=== PATIENT | male | born 1970 | race Caucasian/White ===

== ENCOUNTER 2016-09-19 16:45 | Observation (INO) ==
[2016-09-19 17:22] LABS: Basophils # 0.1 K/mcL (0.0-0.2); Basophils % 0.8 %; Eosinophils # 0.1 K/mcL (0.0-0.6); Eosinophils % 1.7 %; Hematocrit 40.5 % (37.5-50.1); Hemoglobin 13.9 g/dL (12.9-16.9); Immature Granulocytes % 0.5 % (0-4); Lymphocytes # 2.5 K/mcL (0.6-4.6); Lymphocytes % 37.7 %; Mean Corpuscular HGB Conc 34.3 g/dL (31.6-35.5); Mean Corpuscular Hemoglobin 28.5 pg (28.0-33.3); Mean Corpuscular Volume 83.2 fL (83.0-100.0); Mean Platelet Volume 9.9 fL (9.4-12.4); Monocytes # 0.4 K/mcL (0.0-1.3); Monocytes % 5.8 %; Neutrophils # 3.5 K/mcL (1.6-8.9); Platelet Count 225 K/mcL (140-400); Red Blood Count 4.87 M/mcL (4.19-5.50); Red Cell Distribution Width 13.1 % (11.5-14.5); Segmented Neutrophils % 53.5 %
[2016-09-19 17:28] LABS: Prothrombin Time 10.9 Seconds (9.4-12.1)
--- NOTE | 2016-09-19 17:32 | Emergency Department Note ---
Disposition Clinical Impression: Chest pain Qualifiers: Chest pain type: chest pain on breathing Qualified Code(s): R07.1 - Chest pain on breathing Disposition: Admitted As Inpatient Chest Pain HPI - General Chief Complaint: ED Chest Pain Stated Complaint: chest pain Time Seen by Provider: 09/19/16 16:48 Source: patient Limitations: no limitations Vital Signs Reviewed: Yes Nursing Notes Reviewed: Yes - History of Present Illness HPI Narrative: Patient presents with complaint of chest pain that started earlier today. Patient describes the pain as a pressure he feels a going to his left shoulder. Patient states is more pronounced with taking deep breaths, patient denies prior history of similar symptoms. Patient denies any falls denies numbness and tingling. Patient denies fevers or chills. His grandmother had a heart attack in her 40s. Severity scale (1-10): 7 - Related Data Home Medications Medication Instructions Recorded Confirmed Divalproex (12 HR) [Depakote (12 500 mg PO BID 09/19/16 09/19/16 HR)] SUMAtriptan Succinate [Imitrex] 100 mg PO DAILY PRN MDD 200 mg 09/19/16 09/19/16 Allergies Allergy/AdvReac Type Severity Reaction Status Date / Time morphine Allergy Hives Verified 09/19/16 19:58 All systems ED: reviewed and negative except as stated. Chest Pain PMH - Past Medical History Medical history: Reports: CVA, hypertension Psychiatric history: Reports: no psych history - Social History Smoking Status: Never smoker Alcohol use: Reports: none Drug use: Reports: none Physical Exam - General Limitations: no limitations General appearance: alert, in no apparent distress - Head Head exam: atraumatic, normocephalic, normal inspection - Eye Eye exam: Present: normal appearance, PERRL, EOMI - ENT ENT exam: normal exam, normal oropharynx, mucous membranes moist - Neck Neck exam: Present: normal inspection, full ROM, trachea midline - Chest Chest inspection: Present: normal inspection, symmetric chest wall rise - Respiratory Respiratory exam: Present: normal lung sounds bilaterally - Cardiovascular Cardiovascular exam: Present: regular rate, normal rhythm, normal heart sounds - Abdominal Exam Abdominal exam: Present: soft, Non-Tender. Absent: tenderness, distention, guarding, rebound, rigidity - Extremities Exam Extremities exam: Present: normal inspection, full ROM. Absent: tenderness, pedal edema - Back Exam Back exam: Present: normal inspection, full ROM. Absent: tenderness - Neurological Exam Neurological exam: Present: alert, oriented X3 - Psychiatric Psychiatric exam: Present: normal affect, normal mood - Skin Skin exam: Present: warm, dry, intact, normal color Course Vital Signs Temperature 98 F 09/19/16 16:52 Pulse Rate 91 09/19/16 16:52 Respiratory Rate 16 09/19/16 16:52 Blood Pressure 161/108 09/19/16 16:52 O2 Sat by Pulse Oximetry 100 09/19/16 16:52 Temperature 98 F 09/19/16 16:52 Pulse Rate 70 09/19/16 21:07 Respiratory Rate 16 09/19/16 21:07 Blood Pressure 129/90 09/19/16 21:07 O2 Sat by Pulse Oximetry 98 09/19/16 21:07 Oxygen Delivery Oxygen Delivery Room Air Chest Pain - Differential Diagnosis Likely: fracture of rib, pneumothorax, unstable angina pectoris, atypical chest pain, st elevation myocardial infraction - Lab Data Lab results reviewed: Yes I reviewed the patient's lab results. Result diagrams: 09/19/16 17:05 09/19/16 17:05 Lab Results 09/19/16 09/19/16 09/19/16 Range/Units 17:05 17:05 17:05 WBC 6.6 (4.3-11.1) K/mcL RBC 4.87 (4.19-5.50) M/mcL Hgb 13.9 (12.9-16.9) g/dL Hct 40.5 (37.5-50.1) % MCV 83.2 (83.0-100.0) fL MCH 28.5 (28.0-33.3) pg MCHC 34.3 (31.6-35.5) g/dL RDW 13.1 (11.5-14.5) % Plt Count 225 (140-400) K/mcL MPV 9.9 (9.4-12.4) fL Immature Gran % 0.5 (0-4) % Seg Neutrophils % 53.5 % Lymphocytes % 37.7 % Monocytes % 5.8 % Eosinophils % 1.7 % Basophils % 0.8 % Neutrophils # 3.5 (1.6-8.9) K/mcL Lymphocytes # 2.5 (0.6-4.6) K/mcL Monocytes # 0.4 (0.0-1.3) K/mcL Eosinophils # 0.1 (0.0-0.6) K/mcL Basophils # 0.1 (0.0-0.2) K/mcL PT 10.9 (9.4-12.1) Seconds INR 1.0 APTT 30.0 (26.0-36.0) Seconds D-Dimer 716 H (0-500) ng/mLFEU Sodium 141 (136-145) mEq/L Potassium 3.8 (3.5-4.5) mEq/L Chloride 105 (98-109) mEq/L Carbon Dioxide 25 (19-29) mEq/L BUN 14 (8-26) mg/dL Creatinine 0.97 (0.72-1.25) mg/dL Est GFR ( Amer) > 60 (> 60) Est GFR (Non-Af Amer) > 60 (> 60) BUN/Creatinine Ratio 14 (6-26) Glucose 118 H (70-99) mg/dL Calculated Osmolality 294 (280-300) Calcium 9.1 (8.6-10.8) mg/dL Magnesium 1.7 (1.6-2.6) mg/dL Total Bilirubin 0.6 (0.2-1.2) mg/dL AST 19 (5-34) Units/L ALT 31 (0-55) Units/L Alkaline Phosphatase 29 L (38-126) Units/L Troponin I (0-0.03) ng/mL B-Natriuretic Peptide (0-100) pg/mL Serum Total Protein 7.5 (6.0-8.3) g/dL Albumin 3.8 (3.5-5.0) g/dL Globulin 3.7 H (2.4-3.5) g/dL Albumin/Globulin Ratio 1.0 L (1.1-2.2) Triglycerides 160 H (< 150) mg/dL Cholesterol 172 (< 200) mg/dL LDL Cholesterol, Calc 94 (0-99) mg/dL VLDL Cholesterol, Calc 32 H (< 31) mg/dL HDL Cholesterol 46 (40-59) mg/dL Cholesterol/HDL Ratio 3.7 (0-4.9) 09/19/16 09/19/16 Range/Units 17:05 17:05 WBC (4.3-11.1) K/mcL RBC (4.19-5.50) M/mcL Hgb (12.9-16.9) g/dL Hct (37.5-50.1) % MCV (83.0-100.0) fL MCH (28.0-33.3) pg MCHC (31.6-35.5) g/dL RDW (11.5-14.5) % Plt Count (140-400) K/mcL MPV (9.4-12.4) fL Immature Gran % (0-4) % Seg Neutrophils % % Lymphocytes % % Monocytes % % Eosinophils % % Basophils % % Neutrophils # (1.6-8.9) K/mcL Lymphocytes # (0.6-4.6) K/mcL Monocytes # (0.0-1.3) K/mcL Eosinophils # (0.0-0.6) K/mcL Basophils # (0.0-0.2) K/mcL PT (9.4-12.1) Seconds INR APTT (26.0-36.0) Seconds D-Dimer (0-500) ng/mLFEU Sodium (136-145) mEq/L Potassium (3.5-4.5) mEq/L Chloride (98-109) mEq/L Carbon Dioxide (19-29) mEq/L BUN (8-26) mg/dL Creatinine (0.72-1.25) mg/dL Est GFR ( Amer) (> 60) Est GFR (Non-Af Amer) (> 60) BUN/Creatinine Ratio (6-26) Glucose (70-99) mg/dL Calculated Osmolality (280-300) Calcium (8.6-10.8) mg/dL Magnesium (1.6-2.6) mg/dL Total Bilirubin (0.2-1.2) mg/dL AST (5-34) Units/L ALT (0-55) Units/L Alkaline Phosphatase (38-126) Units/L Troponin I 0.00 (0-0.03) ng/mL B-Natriuretic Peptide < 10 (0-100) pg/mL Serum Total Protein (6.0-8.3) g/dL Albumin (3.5-5.0) g/dL Globulin (2.4-3.5) g/dL Albumin/Globulin Ratio (1.1-2.2) Triglycerides (< 150) mg/dL Cholesterol (< 200) mg/dL LDL Cholesterol, Calc (0-99) mg/dL VLDL Cholesterol, Calc (< 31) mg/dL HDL Cholesterol (40-59) mg/dL Cholesterol/HDL Ratio (0-4.9) - Radiology Data Radiology results reviewed: Yes I reviewed the patient's radiology results. Chest X-Ray 09/19/16 16:57 IMPRESSION: No acute process. D/ / Nadeem Benavidez MD / Nadeem Benavidez MD Interpreting Provider: Nadeem Benavidez MD Chest CTA 09/19/16 17:58 IMPRESSION: No evidence of pulmonary embolism or acute pulmonary abnormality. D/ / Tejas Valdes MD / Tejas Valdes MD Interpreting Provider: Tejas Valdes MD - EKG Data EKG attestation: Yes I reviewed and interpreted this EKG. EKG results narrative: EKG was performed and interpreted myself as normal sinus rhythm normal axis. Does note there is T-wave inversion in lead 3 and T-wave flattening in aVR. No previous EKG was available for comparison
[2016-09-19 17:35] LABS: Alanine Aminotransferase 31 Units/L (0-55); Albumin 3.8 g/dL (3.5-5.0); Alkaline Phosphatase 29 Units/L (38-126); Aspartate Amino Transferase 19 Units/L (5-34); BUN/Creatinine Ratio 14 (6-26); Bilirubin,Total 0.6 mg/dL (0.2-1.2); Blood Urea Nitrogen 14 mg/dL (8-26); Calcium 9.1 mg/dL (8.6-10.8); Carbon Dioxide 25 mEq/L (19-29); Chloride 105 mEq/L (98-109); Globulin 3.7 g/dL (2.4-3.5); Glucose 118 mg/dL (70-99); Osmolality,Calculated 294 (280-300); Potassium 3.8 mEq/L (3.5-4.5); Sodium 141 mEq/L (136-145); Total Protein 7.5 g/dL (6.0-8.3); eGFR For African Americans > 60 (> 60); eGFR For Non-African Americans > 60 (> 60)
[2016-09-19] MEDS: Nitroglycerin 0.4 MG TAB.SUBL SL PRN ×3 (18:47→18:58)
[2016-09-19] MEDS ORDERED: Aspirin 81 MG TAB.CHEW PO STA (19:36)
[2016-09-19] MEDS ORDERED: *HR* Morphine 2 MG/ML SYRINGE IVP ONE (19:36)
[2016-09-19] MEDS ORDERED: *HR* Morphine 2 MG/ML SYRINGE IVP PRN (21:21)
--- NOTE | 2016-09-19 21:39 | Internal Med History&Physical ---
Date of Encounter: 09/19/16 Time of Encounter: 21:27 Assessment and Plan (1) Chest pain radiating to arm Current visit: Yes Status: Acute acute onset low ESDRAS score, strong Family history of cardiac disease Na, K, Ca, wnl will check Mg BP 134/90, will continue to monitor EKG with T wave inversion lead 3, falt T in aVR without prior EKG for comparison troponin 0.0, will continue to trend has never had previous cardiac workup will check cholesterol and lipid cascade ASA nitroglycerin allergic to morphine, consider fentyl if CP unresolved by nitroglycerin ECHO supportive care (2) Chest pain, exertional Current visit: Yes Status: Acute (3) Acute chest pain Current visit: Yes Status: Acute (4) Hypertension Current visit: Yes Status: Acute controlled with diet and life style modifications at home 134/90 will continue to monitor Qualifiers: Hypertension type: essential hypertension Qualified Code(s): I10 - Essential (primary) hypertension Internal Medicine - H&P: HPI Chief complaint: chest pain Admitted From: Emergency Dept Plans for Post Hospital Care: Home History of present illness: Mr. Osullivan is a 46 year old male c/o chest pain. Described as 7/10 deep aching pressure type pain which radiates to L shoulder started early this morning around 6-7 at work during role call. He states it lasted several minutes and was 70% relieved with sitting down and resting for a few minutes. Pt states pain continued to fluctuate throughout the day, worsening with increased activity and decreasing in severity with rest. Pt states pain was minimally relieved in the ER with nitroglycerin and morphine but has not fully resolved and has some continued pain. Pain worsens with increased activity and taking deep breaths He states he has never experienced anything like this before today and denies any trauma or falls. Pt denies headache, change in vision, ringing in ears, N/V, diaphoresis,palpitations, SOB, numbness/ tingling or loss of motion in extremities. Past Med Surg Social Fam HX - Past Medical History Medical history: CVA, hypertension, migraine Psychiatric history: no psych history - Social History Smoking Status: Never smoker Smokeless Tobacco Status: No Alcohol use: none Drug use: none Occupational status: employed Current living situation: Home - Independent Activity Level: Independent ambulation - Family History Mother Hx Family Cardiac Disorders: Yes (MO) Hx Family Endocrine Disorder: Yes (DM) Father Hx Family Cardiac Disorders: Yes (multiple MIs, cardiac pacemaker placement) Internal Medicine - H&P: Meds Divalproex (12 HR) [Depakote (12 HR)] 500 mg PO BID 09/19/16 [History] SUMAtriptan Succinate [Imitrex] 100 mg PO DAILY PRN MDD 200 mg 09/19/16 [History ] Allergies morphine Allergy (Verified 09/19/16 19:58) Hives All Systems PM: A 10-system review of systems was performed and is negative for pertinent findings except as documented above in the HPI. - Constitutional Constitutional: no chills, no fever(s), no falls, no night sweats - EENT Eyes: no blurry vision, no change in vision, no pain, no photophobia Ears: no decreased hearing, no tinnitus Nose, mouth and throat: no dysphagia, no facial pain - Cardiovascular Cardiovascular ROS IM: chest pain, no diaphoresis, no dyspnea, no dyspnea on exertion, no edema, no irregular heart rhythm, no lightheadedness, no palpitations - Respiratory Respiratory: pain on inspiration, no cough, no dyspnea, no hemoptysis, no wheezing - Gastrointestinal Gastrointestinal: no diarrhea, no nausea, no vomiting - Musculoskeletal Musculoskeletal ROS IM: no muscle weakness, no tingling - Neurological Neurological ROS: no abnormal hearing, no dizziness, no focal weakness, no frequent falls, no loss of vision, no numbness, no tingling - Constitutional Vitals: Temp Pulse Resp BP Pulse Ox 98 F 70 16 129/90 98 09/19/16 16:52 09/19/16 21:07 09/19/16 21:07 09/19/16 21:07 09/19/16 21:07 General appearance: Present: A&O X 3, no acute distress - Head Head exam: Present: atraumatic, normocephalic - Eye Eye exam: Present: EOMI, PERRL, conjuntiva pink, sclera anicteric Pupils: Present: PERRL - Neck Neck exam general surgery: Present: supple, trachea midline. Absent: lymphadenopathy - Respiratory Respiratory exam: Present: CTAB. Absent: accessory muscle use, rales, rhonchi, wheezes - Cardiovascular Cardiovascular exam: Present: RRR, +S1, +S2. Absent: diastolic murmur, gallop, rubs, systolic murmur - GI/Abdominal GI/Abdominal exam: Present: normal bowel sounds, soft, no peritoneal signs. Absent: distended, tenderness - Extremities Exam Extremities exam: Present: warm, radial pulses palpable and symetrical. Absent : calf tenderness, cyanotic, pedal edema - Neurological Exam Neurological exam: Present: CN II-XII intact, oriented X3, no focal deficits. Absent: pronater drift, facial droop, speech deficit - Skin Skin exam: Present: dry, intact Internal Med - H&P Results - Labs CBC & Chem 7: 09/19/16 17:05 09/19/16 17:05
[2016-09-19 21:43] LABS: Chol/HDL Ratio 3.7 (0-4.9); Cholesterol 172 mg/dL (< 200); HDL Cholesterol 46 mg/dL (40-59); LDL Cholesterol,Calculated 94 mg/dL (0-99); Magnesium 1.7 mg/dL (1.6-2.6); Triglycerides 160 mg/dL (< 150)
[2016-09-19] MEDS ORDERED: Ondansetron 4 MG/2 ML VIAL IVP PRN (21:52)
[2016-09-19] MEDS ORDERED: Naloxone 0.4 MG/ML INJ IVP PRN (21:52)
[2016-09-19] MEDS ORDERED: SUMAtriptan succinate 50 MG TABLET PO PRN (23:47)
--- NOTE | 2016-09-20 00:31 | Event Note ---
Date of Encounter: 09/20/16 Time of Encounter: 00:30 Patient seen and examined with medical physicist. Atypical chest pain. Electrocardiogram shows no ST segment shifts. Initial troponin normal. Which at more sets of cardiac markers. Exercise treadmill will be performed in the morning.
[2016-09-20 04:17] LABS: Hematocrit 39.1 % (37.5-50.1); Hemoglobin 13.4 g/dL (12.9-16.9); Mean Corpuscular HGB Conc 34.3 g/dL (31.6-35.5); Mean Corpuscular Hemoglobin 29.1 pg (28.0-33.3); Mean Corpuscular Volume 84.8 fL (83.0-100.0); Platelet Count 200 K/mcL (140-400); Red Blood Count 4.61 M/mcL (4.19-5.50); Red Cell Distribution Width 13.3 % (11.5-14.5)
[2016-09-20 04:34] LABS: Alanine Aminotransferase 27 Units/L (0-55); Albumin 3.3 g/dL (3.5-5.0); Alkaline Phosphatase 30 Units/L (38-126); Aspartate Amino Transferase 16 Units/L (5-34); BUN/Creatinine Ratio 22 (6-26); Bilirubin,Total 0.4 mg/dL (0.2-1.2); Blood Urea Nitrogen 19 mg/dL (8-26); Calcium 8.7 mg/dL (8.6-10.8); Carbon Dioxide 22 mEq/L (19-29); Chloride 108 mEq/L (98-109); Globulin 3.2 g/dL (2.4-3.5); Glucose 98 mg/dL (70-99); Osmolality,Calculated 292 (280-300); Potassium 4.1 mEq/L (3.5-4.5); Sodium 140 mEq/L (136-145); Total Protein 6.5 g/dL (6.0-8.3); eGFR For African Americans > 60 (> 60); eGFR For Non-African Americans > 60 (> 60)
[2016-09-20] MEDS ORDERED: Divalproex (12 HR) 500 MG TABLET PO SCH (09:00)
[2016-09-20] MEDS ORDERED: Aspirin 325 MG TABLET PO SCH (09:00)
--- NOTE | 2016-09-20 11:04 | ECHO - Doppler Report ---
Echocardiogram Name: Gen Osullivan Date of Study: 09/20/2016 Date: 1970 Ht: 75.0 in Medical Record#: [id number] Age: 46 Wt: 262.0 lb Gender: Male BSA: 2.46 Order #: [id number] Location: [facility] Room #: 3B53 Reading Physician: Sushant Ivy MD, [facility] Escalator Installer: Luis Miguel Woodruff SOLANGE Ordering Physician: Kacy Ochoa DO Primary Physician: James Castaneda M.D. Indications: Chest pain Impressions: Normal LV systolic function, LVEF 60%. Normal right ventricular size and function. No significant valvular dysfunction. No evidence of pulmonary hypertension. Borderline dilated aortic root, measuring 4.1 cm at the sinuses of Valsalva. Left Ventricular Wall Motion: Rest Echo Findings All wall segments showed normal motion. Findings: Study Quality * Technically adequate exam. ECG Findings * Normal sinus rhythm. Left Ventricle * Normal LV systolic function, LVEF 60%. * Normal LV chamber size and wall thickness. * Indeterminate diastolic function. Right Ventricle * Normal right ventricular size and function. Left Atrium * Normal left atrial size. Right Atrium * Normal right atrial size. Aorta * Borderline dilated aortic root, measuring 4.1 cm at the sinuses of Valsalva. Pericardium * There is no pericardial effusion present. IVC * The IVC is not well evaluated. Aortic Valve * Trileaflet aortic valve. * No aortic stenosis. * Trace aortic regurgitation. Mitral Valve * Normal mitral valve structure. * No mitral stenosis. * Trace mitral regurgitation. Tricuspid Valve * Normal tricuspid valve structure. * No tricuspid stenosis. * Trace tricuspid regurgitation. * No evidence of pulmonary hypertension. Pulmonic Valve * Pulmonic valve not well visualized. * No pulmonic stenosis. * Trace pulmonic regurgitation. History Family History of CAD Measurements: BP: 124/ 75 2D Normal Values RVIDd: 3.92 cm IVSd: .83 cm 0.6 - 1.0 cm LVIDd: 5.17 cm 3.7 - 5.6 cm LVPWd: 1.04 cm 0.6 - 1.1 cm LVIDs: 3.27 cm 1.5 - 3.6 cm AO: 4.10 cm < 4.0 cm %FS: 36.80 cm >25 % LA volume: 49 Tricuspid Valve TV Regurg Peak Grad: 20.00mmHg TV Regurg Peak Eliazar: 2.22m/sec Updated by Sushant Ivy MD, [facility] on 09/20/2016 11:00:05 AM electronically signed on 09/20/2016 11:00:36 AM with status of Final Wall Motion [place]: 1=Normal, 2=Hypokinesis, 3=Akinesis, 4=Dyskinesis, 5=Aneurysmal, 6=Hyperkinetic, X=Not Visualized (Blank)=Missing
--- NOTE | 2016-09-20 12:53 | Exercise Stress Test ---
Exercise Stress Name: Gen Osullivan Date of Study: 09/20/2016 Date: 1970 Ht: 75.0in Medical Record#: [id number] Age: 46 Wt: 260.0lb Gender: Male BSA: 2.45 Order #: [id number] Location: [facility] Room #: 3B Reading Physician: Sushant Ivy MD, [facility] Technologist: Harvey Henry, REMOTE BROADCAST ENGINEER, CP Supervising Provider: Vera Hanna CNP Primary Physician: James Castaneda M.D. Ordering Physician: Kelli Askew MD Indication: Chest Pain Impressions: Patient reported moderate chest pain prior to the test. Chest pain did not change during exercise. The exercise capacity was average. Stress ECG is negative for ischemia. Findings: Baseline ECG demonstrates sinus rhythm, low voltage in precordial leads. No baseline arrhythmias were noted. The exercise capacity was average. The patient demonstrated a normal blood pressure response. Patient reported moderate chest pain prior to the test. Chest pain did not change during exercise. 1 PVC noted during exercise. Stress ECG is negative for ischemia. History: Hypertension Family History Stress Test Summary: Stress Test Type: Treadmill Protocol: Scot Baseline Information: Maximum Predicted HR: 175 85% MPHR: 149 Blood Pressure: 122 / 88 Stress Information: Total Exercise Time: 7:23 minutes Test Terminated Due To: Dyspnea Maximum Blood Pressure: 160 / 86 Maximum Heart Rate: 149 Percent Maximum Heart Rate Achieved: 85 Double Product: [id number] METS Reached: 10.1 Symptoms: Chest pain, Shortness of breath Updated by Sushant Ivy MD, [facility] on 09/20/2016 12:47:49 PM electronically signed on 09/20/2016 12:48:22 PM with status of Final
[2016-09-20 14:49] VITALS: BP 142/95
--- NOTE | 2016-09-20 15:03 | Discharge Summary ---
Date of Encounter: 09/20/16 Time of Encounter: 15:01 - Discharge Diagnosis (1) Chest pain Priority: Primary Status: Acute Qualifiers: Chest pain type: unspecified Qualified Code(s): R07.9 - Chest pain, unspecified (2) Epilepsy Priority: Secondary Status: Chronic Qualifiers: Epilepsy type: unspecified Intractability: not intractable Status epilepticus: without status epilepticus Qualified Code(s): G40.909 - Epilepsy , unspecified, not intractable, without status epilepticus (3) Hypertension Priority: Secondary Status: Chronic Qualifiers: Hypertension type: essential hypertension Qualified Code(s): I10 - Essential (primary) hypertension - Discharge Medications Home Medications: Divalproex (12 HR) [Depakote (12 HR)] 500 mg PO BID 09/19/16 [History] SUMAtriptan Succinate [Imitrex] 100 mg PO DAILY PRN MDD 200 mg 09/19/16 [History ] Allergies/Adverse Reactions: Allergies morphine Allergy (Verified 09/19/16 19:58) Hives Procedures/tests Complete & Pending: Procedures Performed prior 72 hours Category Date Time Status SP exercise stress ECG Routine Y 09/20/16 07:40 Completed Date of admission: 09/19/16 23:04 Primary care physician: James Castaneda MD Discharging clinician: Alejandrina Edmondson Anticipated date of discharge: 09/20/16 - Patient Status Disposition: Home, Self-Care Condition: Good Functional capacity at discharge: independent ambulation Overall status at discharge: patient is progressing back to baseline - Discharge Instructions Instructions: Chest Pain (DC), Chronic Hypertension (DC) Follow Up With: James Castaneda MD [Primary Care Provider] - 09/26/16 3:15 pm - Diet and Activity Activity: resume usual activities as tolerated Diet: low fat, low cholesterol Hospital course: Mr. Osullivan is a 46 year old male with history of epilepsy, was admitted with left-sided chest pain. Initial labs, chest x-ray and EKG done in the emergency room showed no acute abnormality. He was noted to have slightly elevated d- dimer but CT angiogram of the chest revealed no pulmonary embolism or other acute pulmonary abnormality. He was placed on telemetry monitoring, which remained uneventful. Serial troponins remained negative. Echocardiogram was done which showed preserved ejection fraction and no valvular or other acute abnormalities. Exercise stress test was completed, which was negative for ischemia. Patient's chest pain is fairly constant with no significant association with food, postural changes, inspiration, only minimally relieved with nitroglycerin. This is likely noncardiac chest pain and he is medically stable for discharge with outpatient follow-up. - Time Spent with Patient Total time spent providing and/or coordinating discharge services: Greater than 30 minutes (45 min) - Constitutional Vitals: Temp Pulse Resp BP Pulse Ox 97.5 F L 85 16 142/95 97 09/20/16 14:48 09/20/16 14:48 09/20/16 14:48 09/20/16 14:48 09/20/16 14:48 General appearance: Present: A&O X 3, no acute distress - Respiratory Respiratory exam: Present: CTAB. Absent: accessory muscle use, rales, rhonchi, wheezes - Cardiovascular Cardiovascular exam: Present: RRR, +S1, +S2. Absent: diastolic murmur, gallop, rubs, systolic murmur
--- NOTE | 2016-09-20 15:49 | Electrocardiograph Report ---
[address] [address] Test Date: 2016-09-19 Pat Name: Gen Osullivan Department: 105 Room: [facility] Gender: M Vp [employer]: : 1970 Requested By: Tom Hankins Order Number: [id number] Reading MD: Enedelia Story Measurements Intervals [place] Rate: 75 P: 27 NH: 179 QRS: 5 QRSD: 98 T: 17 QT: 358 QTc: 387 Interpretive Statements SINUS RHYTHM LOW QRS VOLTAGE IN PRECORDIAL LEADS [QRS DEFLECTION < 1.0 mV IN CHEST LEADS] Electronically Signed On 09-20-2016 15:48:04 EDT by Enedelia Story
[2016-09-22 17:35] LABS: CK-BB (CK isoenzymes) 0 % (0-0); CK-MB (CK isoenzymes) 0 % (0-4); CK-MM (CK-isoenzymes) 100 % (96-100)
[2016-09-23 08:04] LABS: CK Total (Ck Isoenzymes) 128 U/L (20-200)
== END 2016-09-20 15:38 | disposition home or self-care (01) ==
LOC: EMEROO 16:45 → 3BNU 16:45 → SUATTDRO 23:04
PROVIDERS: ADMIT Hospitalist; ATTEND Internal Medicine